=== PATIENT | female | born 1955 | race Caucasian/White ===

== ENCOUNTER 2019-03-15 10:37 | Emergency (ER) | payer OTHER ==
[2019-03-15 10:44] VITALS: BP 116/78; PULSE 75; TEMP 98.2; BMI 29.7
--- NOTE | 2019-03-15 11:55 | PDOC ---
History of Present Illness - General Chief Complaint: Cold Symptoms Stated Complaint: COUGHING Time Seen by Provider: 03/15/19 10:50 - History of Present Illness Initial Comments: 03/15/19 11:51 63-year-old female with a past medical history of hypertension diabetes presents for evaluation of cough without systemic symptoms x1 week Past History - Past Medical History Allergies/Adverse Reactions: Allergies Allergy/AdvReac Type Severity Reaction Status Date / Time No Known Allergies Allergy Verified 03/15/19 10:40 Home Medications: Ambulatory Orders Albuterol Sulfate Inhaler - [Ventolin HFA Inhaler -] 1 - 2 inh PO Q4H #1 inhaler 08/24/17 Enalapril Maleate [Vasotec -] 10 mg PO DAILY 08/24/17 metFORMIN HCL [Metformin HCl] 500 mg PO ASDIR 08/24/17 Guaifenesin Dm [Mucinex Dm -] 1 tab PO BID #60 tab.er.12h 03/15/19 metFORMIN HCL [Metformin HCl] 500 mg PO BID 03/15/19 Asthma: Yes COPD: No Diabetes: Yes HTN: Yes Hypercholesterolemia: Yes - Surgical History Cholecystectomy: Yes - Immunization History Immunization Up to Date: Yes - Psycho Social/Smoking Cessation Hx Smoking History: Never smoked Have you smoked in the past 12 months: Yes Hx Alcohol Use: Yes Drug/Substance Use Hx: No Substance Use Type: None *Physical Exam - Vital Signs Last Vital Signs Temp Pulse Resp BP Pulse Ox 98.2 F 75 18 116/78 98 03/15/19 10:40 03/15/19 10:40 03/15/19 10:40 03/15/19 10:40 03/15/19 10:40 ED Treatment Course - RADIOLOGY Radiology Studies Ordered: Category Date Time Status CHEST PA & LAT [RAD] Stat Radiology 03/15/19 11:01 Taken Medical Decision Making - Medical Decision Making 03/15/19 11:54 Chest x-ray shows no discrete infiltrate increased interstitial markings consistent with a viral pattern most likely a viral upper respiratory infection follow-up with primary care physician Discharge - Discharge Information Problems reviewed: Yes Clinical Impression/Diagnosis: Viral URI with cough Condition: Stable Disposition: HOME - Admission No - Follow up/Referral Referrals: Mariella Turk MD [Primary Care Provider] - - Patient Discharge Instructions Patient Printed Discharge Instructions: DI for Viral Upper Respiratory Infection -- Adult Additional Instructions: May take Mucinex as directed for cough. Return to the emergency room for the worsening symptoms. Follow-up with your primary care physician in 1 to 2 days for further evaluation and treatment options. - Post Discharge Activity
--- NOTE | 2019-03-16 10:55 | EKG ---
Test Reason : Blood Pressure : / mmHG Vent. Rate : 061 BPM Atrial Rate : 061 BPM P-R Int : 168 ms QRS Dur : 076 ms QT Int : 404 ms P-R-T Axes : 053 000 026 degrees QTc Int : 406 ms NORMAL SINUS RHYTHM NORMAL ECG NO PREVIOUS ECGS AVAILABLE Confirmed by ANAT VILLEDA MD ([id number]) on 03/16/2019 10:54:37 AM Referred By: Confirmed By:ANAT VILLEDA MD
== END 2019-03-15 12:08 | disposition home or self-care (01) ==
LOC: JERFT 10:37
DX: J06.9 Acute upper respiratory infection, unspecified (principal); B97.89 Other viral agents as the cause of diseases classified elsewhere; I10 Essential (primary) hypertension; E78.00 Pure hypercholesterolemia, unspecified; E11.9 Type 2 diabetes mellitus without complications; Z79.84 Long term (current) use of oral hypoglycemic drugs
CPT/HCPCS: 71046-TC-FY; 87804; 93005; 93010; 99281-25

== ENCOUNTER 2019-04-26 00:23 | Observation (INO) | payer OTHER ==
--- NOTE | 2019-04-26 00:48 | PDOC ---
History of Present Illness - General Chief Complaint: Allergic Reaction Stated Complaint: ALLERGIC REACTION Time Seen by Provider: 04/26/19 00:48 History Source: Patient Exam Limitations: No Limitations - History of Present Illness Initial Comments: 63 year old female with PMH HTN, DM presented to ED for facial swelling beginning at 2300 yesterday. Pt reported she took her ACEI, Metformin, and Ibuprofen 400 mg around 2200, then awoke around 2300 "not feeling well" and noticed her eyes were swollen. She reported she has had a similar reaction to taking ibuprofen before, noticed some minimal eye swelling, but figured "it was because her pressure was high". She reported feeling itching all over with a rash to her back. She admitted to nausea. She denied vomiting, shortness of breath, lightheadedness, syncope, chest pain. ROS General: admitted to generalized weakness. denied fever, chills. HEENT: admitted to facial swelling. denied sore throat, rhinorrhea, ear pain. Cardiovascular: denied chest pain, palpitations, syncope, diaphoresis. Respiratory: denied shortness of breath, cough, sputum production, hemoptysis. Gastrointestinal: admitted to nausea. denied abdominal pain, vomiting, diarrhea , constipation, blood in stool. Genitourinary: denied dysuria, increased urinary frequency, hematuria, urinary incontinence, flank pain. Back: denied back pain. Musculoskeletal: denied joint pain, muscle pain, joint swelling. Neurological: denied headache, dizziness, numbness, tingling, weakness. Integumentary: admitted to rash, itching. denied laceration, abrasion. Hematologic/Lymphatic: denied bruising or bleeding. PE Constitutional: Well-nourished, Well-developed, appearing stated age. HEENT: head is normocephalic, atraumatic. EOMI. PERRLA. no posterior pharyngeal erythema. no tonsillar swelling or exudates bilaterally. uvula midline, with uvular swelling. no peritonsillar swelling, tenderness or abscess. no jaw tenderness or misalignment. Neck: supple. Full ROM. Cardiovascular: regular heart rhythm. no murmurs. no pericardial friction rub. Respiratory: clear to auscultation bilaterally. no crackles, rhonchi or wheezing. no stridor. Gastrointestinal: soft, nontender. normal bowel sounds. no rebound, guarding, masses. Back: hives with scratch-like abrasions. Extremities: peripheral pulses intact. no lower extremity edema. Neurological: CN 2-12 grossly intact. moves all four extremities. Psych: awake, alert, oriented x3. follows commands. answers questions appropriately. Past History - Past Medical History Allergies/Adverse Reactions: Allergies Allergy/AdvReac Type Severity Reaction Status Date / Time No Known Allergies Allergy Verified 03/15/19 10:40 Home Medications: Ambulatory Orders Enalapril Maleate [Vasotec -] 10 mg PO DAILY 08/24/17 metFORMIN HCL [Metformin HCl] 500 mg PO DAILY 03/15/19 Epinephrine [Epipen 2-Gama] 0.3 mg IJ ASDIR #1 kit 04/26/19 - Immunization History Immunization Up to Date: Yes - Psycho Social/Smoking Cessation Hx Smoking History: Never smoked Have you smoked in the past 12 months: No Hx Alcohol Use: No Drug/Substance Use Hx: No Substance Use Type: None *Physical Exam - Vital Signs Last Vital Signs Temp Pulse Resp BP Pulse Ox 97.2 F L 70 20 158/79 98 04/26/19 00:36 04/26/19 00:36 04/26/19 00:36 04/26/19 00:36 04/26/19 00:36 ED Treatment Course - LABORATORY CBC & Chemistry Diagram: 04/26/19 01:20 04/26/19 03:00 Medical Decision Making - Medical Decision Making 63 year old female with above PMH presented to ED for rash, itching, facial swelling after taking ACEI, Metformin, and Ibuprofen 400 mg PO. She reported similar but less intense reaction prior with ibuprofen. Initial Vital Signs Temp Pulse Resp BP Pulse Ox 97.2 F L 70 20 158/79 98 04/26/19 00:36 04/26/19 00:36 04/26/19 00:36 04/26/19 00:36 04/26/19 00:36 Afebrile. No tachycardia. No tachypnea. Hypertensive. No hypoxia on room air. Labs ordered: CBC, CMP Imaging ordered: none Medications ordered: solumedrol IV 125 mg, benadryl 50 mg PO once, zofran 4 mg IV once, pepcid IV once, normal saline bolus 1000 cc once 04/26/19 02:13 CBC WBC 5.6 K/mm3 (4.0-10.0) 04/26/19 01:20 RBC 4.51 M/mm3 (3.60-5.2) 04/26/19 01:20 Hgb 14.0 GM/dL (10.7-15.3) 04/26/19 01:20 Hct 42.4 % (32.4-45.2) 04/26/19 01:20 MCV 94.0 fl (80-96) 04/26/19 01:20 MCH 31.0 pg (25.7-33.7) 04/26/19 01:20 MCHC 33.0 g/dl (32.0-36.0) 04/26/19 01:20 RDW 14.1 % (11.6-15.6) 04/26/19 01:20 Plt Count 184 K/MM3 (134-434) 04/26/19 01:20 MPV 10.2 fl (7.5-11.1) 04/26/19 01:20 Absolute Neuts (auto) 2.0 K/mm3 (1.5-8.0) 04/26/19 01:20 Neutrophils % 35.7 % (42.8-82.8) L 04/26/19 01:20 Lymphocytes % 50.7 % (8-40) H 04/26/19 01:20 Monocytes % 7.6 % (3.8-10.2) 04/26/19 01:20 Eosinophils % 5.2 % (0-4.5) H 04/26/19 01:20 Basophils % 0.8 % (0-2.0) 04/26/19 01:20 Nucleated RBC % 0 % (0-0) 04/26/19 01:20 04/26/19 03:18 Lab lost jungle top. Will re-draw. 04/26/19 06:19 CMP Sodium 142 mmol/L (136-145) 04/26/19 03:00 Potassium 4.2 mmol/L (3.5-5.1) 04/26/19 03:00 Chloride 112 mmol/L (98-107) H 04/26/19 03:00 Carbon Dioxide 22 mmol/L (21-32) 04/26/19 03:00 Anion Gap 8 MMOL/L (8-16) 04/26/19 03:00 BUN 13.8 mg/dL (7-18) 04/26/19 03:00 Creatinine 0.8 mg/dL (0.55-1.3) 04/26/19 03:00 Est GFR (CKD-EPI)AfAm 92.22 04/26/19 03:00 Est GFR (CKD-EPI)NonAf 79.57 04/26/19 03:00 Random Glucose 121 mg/dL (74-106) H 04/26/19 03:00 Calcium 8.3 mg/dL (8.5-10.1) L 04/26/19 03:00 Total Bilirubin 0.3 mg/dL (0.2-1) 04/26/19 03:00 AST 18 U/L (15-37) 04/26/19 03:00 ALT 23 U/L (13-61) 04/26/19 03:00 Alkaline Phosphatase 61 U/L (45-117) 04/26/19 03:00 Total Protein 6.7 g/dl (6.4-8.2) 04/26/19 03:00 Albumin 3.5 g/dl (3.4-5.0) 04/26/19 03:00 Pt admitted for Obs of uvular swelling. Signout given to Dr. Richardson, resident. Discharge - Discharge Information Problems reviewed: Yes Clinical Impression/Diagnosis: Uvular swelling Allergic reaction Qualifiers: Encounter type: initial encounter Qualified Code(s): T78.40XA - Allergy, unspecified, initial encounter Condition: Guarded - Admission Yes - Additional Discharge Information - Follow up/Referral - Patient Discharge Instructions - Post Discharge Activity
[2019-04-26] MEDS ORDERED: diphenhydrAMINE HCL 50 MG CAPSULE PO ONE (00:55)
[2019-04-26] MEDS ORDERED: SODIUM CHLORIDE 1,000 ML IV STA (00:55)
[2019-04-26] MEDS ORDERED: methylPREDNISolone NA SUCC 125 MG/2 ML VIAL IVPUSH ONE (00:55)
[2019-04-26] MEDS ORDERED: FAMOTIDINE 20 MG/50 ML IVPB 20 MG/50 ML MG IVPB ONE ×3 (00:55→11:17)
[2019-04-26] MEDS ORDERED: ONDANSETRON 4 MG/2 ML VIAL IVPUSH ONE (00:55)
[2019-04-26] MEDS ORDERED: diphenhydrAMINE HCL 25 MG CAPSULE (FP) PO ONE (01:16)
[2019-04-26] MEDS ORDERED: methylPREDNISolone NA SUCC 125 MG/2 ML VIAL ONE (01:17)
[2019-04-26] MEDS ORDERED: ONDANSETRON 4 MG/2 ML VIAL ONE (01:18)
[2019-04-26 01:52] LABS: BASO % 0.8 % (0-2.0); EOS % 5.2 % (0-4.5); HEMATOCRIT 42.4 % (32.4-45.2); LYMPH % 50.7 % (8-40); MEAN PLT VOLUME 10.2 fl (7.5-11.1); MONO % 7.6 % (3.8-10.2); NEUT % 35.7 % (42.8-82.8); PLATELET COUNT 184 K/MM3 (134-434); RBC 4.51 M/mm3 (3.60-5.2); RDW 14.1 % (11.6-15.6); WHITE BLOOD COUNT 5.6 K/mm3 (4.0-10.0)
--- NOTE | 2019-04-26 02:35 | PDOC ---
Attending Attestation - Resident Resident Name: Eliz,Cyndee - ED Attending Attestation I have performed the following: I have examined & evaluated the patient, The case was reviewed & discussed with the resident, I agree w/resident's findings & plan - HPI HPI: 04/26/19 02:32 Pt comes with an allergic rxn to motrin (most likely) she has something like this in the recent past. Today she took 2 motrin and she developed swelling of her face, hoves and uvula swelling and a feeling like she cannot swallow. - Physicial Exam PE: 04/26/19 02:33 Agree with resident exam. Pt is breathing easily; she has swelling of her uvula and mucus in the back of her throat. No voice changes. Pt has normal heart and lungs. Abd soft NT ND Pt has no flank pain She has no leg swelling She has swollen eyelids She has small hives on her trunk - Medical Decision Making 04/26/19 02:37 Pt will be admitted for observation, as she is having difficulty swallowing. 04/26/19 02:55 CBC is normal; lab miscplaced the CHEM, and pt is refusing another blood draw at this time. Pt treated with benadryl, prednisone and zofran and she is sleeping comfortably at this time. 04/26/19 04:06 Chem is still pending-- unclear if lab found the sample 04/26/19 04:06 04/26/19 05:[address] of airway demonstrates patent airway
[2019-04-26 04:07] LABS: ALBUMIN 3.5 g/dl (3.4-5.0); BILIRUBIN,TOTAL 0.3 mg/dL (0.2-1); BLOOD UREA NITROGEN 13.8 mg/dL (7-18); CALCIUM 8.3 mg/dL (8.5-10.1); CREATININE 0.8 mg/dL (0.55-1.3); POTASSIUM 4.2 mmol/L (3.5-5.1); TOT PROT 6.7 g/dl (6.4-8.2)
[2019-04-26 11:30] VITALS: BMI 28.8
--- NOTE | 2019-04-26 11:39 | HP ---
CHIEF COMPLAINT: Angioedema PCP: HISTORY OF PRESENT ILLNESS: 63 y/o F with PMHx HTN, HLD, DM presents for periorbital and uvular swelling. Patient has been on ACEi and Metformin for many years. She woke in her usual state of health and took her metformin and ACEi, and was able to work a full day. Yesterday evening, patient started to feel a headache for which she took ibuprofen; She has felt similar headaches in the past which were related to her high blood pressure. She went to bed with minimal improvement of her headache however around 2300, she woke not feeling well and noticed swelling of her eyelids. This is the first time she experienced. She additionally felt some throat swelling prompting her to visit the ED. Since then she additionally feels nausea. No recent medication changes. Denies any associated fevers, chills, chest pain, SOB, vomiting, diarrhea, constipation, lightheadedness, dysuria. 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 Ambulation: without assistance Residence: Alone Allergies No Known Allergies Allergy (Verified 03/15/19 10:40) HOME MEDICATIONS: Home Medications Medication Instructions Recorded Enalapril Maleate [Vasotec -] 10 mg PO DAILY 08/24/17 metFORMIN HCL [Metformin HCl] 500 mg PO DAILY 03/15/19 Epinephrine [Epipen 2-Gama] 0.3 mg IJ ASDIR #1 kit 04/26/19 REVIEW OF SYSTEMS As per HPI PHYSICAL EXAMINATION Vital Signs - 24 hr 04/26/19 04/26/19 04/26/19 00:36 07:30 10:33 Temperature 97.2 F L 97.2 F L Pulse Rate 70 75 Pulse Rate [ 78 Radial] Respiratory 20 18 18 Rate Blood Pressure 158/79 122/67 Blood Pressure 139/75 [Right Arm] O2 Sat by Pulse 98 98 Oximetry (%) GENERAL: A&Ox3, NAD HEAD: NCAR EYES: PERRL, EOMI, Periorbital swelling EARS, NOSE, THROAT: Mild Uvular swelling, No erythema, Moist mucous membranes. NECK: FROM, No JVD LUNGS: CTAB, No wheezes, No crackles. HEART: Regular rate and rhythm, normal S1 and S2 without murmur ABDOMEN: Soft, nontender, not distended, + bowel sounds, no guarding MUSCULOSKELETAL: No CVA tenderness. EXTREMITIES: No peripheral edema. NEUROLOGICAL: Cranial nerves II-XII intact. Normal speech. SKIN: Warm, dry, No Rash Laboratory Results - last 24 hr 04/26/19 04/26/19 01:20 03:00 WBC 5.6 RBC 4.51 Hgb 14.0 Hct 42.4 MCV 94.0 MCH 31.0 MCHC 33.0 RDW 14.1 Plt Count 184 MPV 10.2 Absolute Neuts (auto) 2.0 Neutrophils % 35.7 L Lymphocytes % 50.7 H Monocytes % 7.6 Eosinophils % 5.2 H Basophils % 0.8 Nucleated RBC % 0 Sodium 142 Potassium 4.2 Chloride 112 H Carbon Dioxide 22 Anion Gap 8 BUN 13.8 Creatinine 0.8 Est GFR (CKD-EPI)AfAm 92.22 Est GFR (CKD-EPI)NonAf 79.57 Random Glucose 121 H Calcium 8.3 L Total Bilirubin 0.3 AST 18 ALT 23 Alkaline Phosphatase 61 Total Protein 6.7 Albumin 3.5 Active Medications Diphenhydramine HCl (Benadryl -) 25 mg PO BID BERNARDO Heparin Sodium (Porcine) (Heparin -) 5,000 unit SQ TID BERNARDO Famotidine/Sodium Chloride (Pepcid 20 Mg Premixed Ivpb -) 20 mg in 50 mls @ 100 mls/hr IVPB DAILY ONE Stop: 04/26/19 11:46 Metformin HCl (Glucophage -) 500 mg PO 0730 BERNARDO Prednisone (Deltasone -) 40 mg PO DAILY [facility] ASSESSMENT/PLAN: 63 y/o F with PMHx HTN, DM presents for periorbital and uvular swelling. #Periorbital and uvular swelling -Unclear etiology; Concerning for Angioedema in the setting of chronic ACEi use VS Adverse/Allergic Rxn to Metformin or Ibuprofen use -Currently saturating well on room air, able to maintain airway and mentation at this time without stridor -CT Soft tissue neck w/o con: No evidence of acute pathology. -Continue Diphenhydramine, Prednisone, Famotidine for a total of 5 days #HTN -Hold ACEi for now -Remains normotensive for now; Will consider starting Norvasc if becomes hypertensive #DM -Continue Metformin #FEN -No standing fluids -Replete Lytes PRN -Soft diet #PPx -DVT: Heparin TID -GI: Famotidine Dispo: Tele-obs; Anticipate discharge tmrw if airway remains patent Visit type - Emergency Visit Emergency Visit: Yes ED Registration Date: 04/26/19 Care time: The patient presented to the Emergency Department on the above date and was hospitalized for further evaluation of their emergent condition. - New Patient This patient is new to me today: Yes Date on this admission: 04/27/19 - Critical Care Critical Care patient: No ATTENDING PHYSICIAN STATEMENT I saw and evaluated the patient. I reviewed the resident's note and discussed the case with the resident. I agree with the resident's findings and plan as documented. SUBJECTIVE: OBJECTIVE: ASSESSMENT AND PLAN:
[2019-04-26] MEDS: diphenhydrAMINE HCL 25 MG CAPSULE (FP) PO SCH ×2 (11:41→21:43)
[2019-04-26] MEDS: predniSONE 20 MG TABLET (UD) PO SCH (11:41)
[2019-04-26] MEDS: metFORMIN HCL 500 MG TABLET (FP) PO SCH (11:42)
--- NOTE | 2019-04-26 13:59 | EKG ---
Test Reason : Blood Pressure : / mmHG Vent. Rate : 068 BPM Atrial Rate : 068 BPM P-R Int : 154 ms QRS Dur : 074 ms QT Int : 418 ms P-R-T Axes : 043 -06 023 degrees QTc Int : 444 ms NORMAL SINUS RHYTHM NORMAL ECG WHEN COMPARED WITH ECG OF 15-MAR-2019 10:45, NO SIGNIFICANT CHANGE WAS FOUND Confirmed by MALENA TAI MD ([id number]) on 04/26/2019 1:58:48 PM Referred By: Confirmed By:MALENA TAI MD
--- NOTE | 2019-04-26 14:08 | PN ---
Teaching Attending Note Name of Resident: Riri Campos ATTENDING PHYSICIAN STATEMENT I saw and evaluated the patient. I reviewed the resident's note and discussed the case with the resident. I agree with the resident's findings and plan as documented. SUBJECTIVE: Feeling much improved. Edema improved, not resolved. No further rash , itch, difficulty swallowing/breathing. OBJECTIVE: Afebrile, Hemodynamically Stable. Comfortable, SpO2 98% on RA. Last Vital Signs Temp Pulse Resp BP Pulse Ox 98.2 F 81 18 138/81 98 04/26/19 11:20 04/26/19 11:31 04/26/19 11:43 04/26/19 11:20 04/26/19 11:43 HEENT - Celeste-orbital/facial swelling. HARINDER, EOMI. Mild uvula/pharngeal swellling - no erythema/exudate. Airways patent, No stridor. Heart - S1, S2, RRR Lungs - clear to auscultations - no wheeze. No stridor. Abdomen - Soft, non-tender. Bowel Sounds normal. Extremities -no edema, no calf tenderness Neuro - AAO x 3. Tone/Power normal all extremities. Laboratory Results - last 24 hr 04/26/19 04/26/19 01:20 03:00 WBC 5.6 RBC 4.51 Hgb 14.0 Hct 42.4 MCV 94.0 MCH 31.0 MCHC 33.0 RDW 14.1 Plt Count 184 MPV 10.2 Absolute Neuts (auto) 2.0 Neutrophils % 35.7 L Lymphocytes % 50.7 H Monocytes % 7.6 Eosinophils % 5.2 H Basophils % 0.8 Nucleated RBC % 0 Sodium 142 Potassium 4.2 Chloride 112 H Carbon Dioxide 22 Anion Gap 8 BUN 13.8 Creatinine 0.8 Est GFR (CKD-EPI)AfAm 92.22 Est GFR (CKD-EPI)NonAf 79.57 Random Glucose 121 H Calcium 8.3 L Total Bilirubin 0.3 AST 18 ALT 23 Alkaline Phosphatase 61 Total Protein 6.7 Albumin 3.5 Current Medications Generic Name Dose Route Start Last Admin Trade Name Freq PRN Reason Stop Dose Admin Diphenhydramine HCl 25 mg 04/26/19 11:30 04/26/19 11:41 Benadryl - PO 25 mg BID BERNARDO Administration Heparin Sodium (Porcine) 5,000 unit 04/26/19 14:00 Heparin - SQ TID BERNARDO Metformin HCl 500 mg 04/26/19 11:30 04/26/19 11:42 Glucophage - PO 500 mg 0730 BERNARDO Administration Prednisone 40 mg 04/26/19 11:30 04/26/19 11:41 Deltasone - PO 40 mg DAILY BERNARDO Administration Home Medications Medication Instructions Recorded Enalapril Maleate [Vasotec -] 10 mg PO DAILY 08/24/17 metFORMIN HCL [Metformin HCl] 500 mg PO DAILY 03/15/19 ASSESSMENT AND PLAN: 63 year old female with HTN, DM 2, presents with difficulty swallowing, rash, itching, found to have periorbital and uvular swelling. 1. Angioedema, possible anaphylactic reaction to ?AYSHA-I Also took Metformin and Ibuprofen yesterday. No history of reaction to any of these on prior exposure. Will hold AYSHA-I and re-trial of Metformin. No clear environmental or food exposure. Currently comfortable, SpO2 98% RA, no wheeze or stridor. Continue steroid, anti-histamine, H2 maryse for a total of 5 days. 2. HTN - Hold AYSHA-I 3. DM 2 - Resume Metformin DVT Px - Heparin SQ GI Px - H2 maryse.
[2019-04-26] MEDS: HEPARIN NA (PORCINE) 5,000 UNITS/ML 1ML VIAL SQ SCH ×2 (14:26→21:43)
[2019-04-27] MEDS: HEPARIN NA (PORCINE) 5,000 UNITS/ML 1ML VIAL SQ SCH (05:39)
[2019-04-27] MEDS: metFORMIN HCL 500 MG TABLET (FP) PO SCH ×2 (06:21→07:38)
[2019-04-27 07:05] LABS: BASO % 0.3 % (0-2.0); EOS % 0.1 % (0-4.5); HEMATOCRIT 38.7 % (32.4-45.2); HEMOGLOBIN 12.9 GM/dL (10.7-15.3); LYMPH % 25.6 % (8-40); MCHC 33.3 g/dl (32.0-36.0); MEAN CELL VOLUME 93.1 fl (80-96); MONO % 8.1 % (3.8-10.2); NEUT % 65.9 % (42.8-82.8); PLATELET COUNT 201 K/MM3 (134-434); RBC 4.15 M/mm3 (3.60-5.2); RDW 13.9 % (11.6-15.6); WHITE BLOOD COUNT 9.6 K/mm3 (4.0-10.0)
[2019-04-27 07:16] LABS: ALBUMIN 3.3 g/dl (3.4-5.0); BILIRUBIN,TOTAL 0.3 mg/dL (0.2-1); BLOOD UREA NITROGEN 14.9 mg/dL (7-18); CALCIUM 8.7 mg/dL (8.5-10.1); CREATININE 0.8 mg/dL (0.55-1.3); MAGNESIUM 2.1 mg/dL (1.8-2.4); POTASSIUM 4.3 mmol/L (3.5-5.1); TOT PROT 6.6 g/dl (6.4-8.2)
[2019-04-27 09:26] VITALS: BP 140/76; PULSE 70; TEMP 97.9
[2019-04-27] MEDS: predniSONE 20 MG TABLET (UD) PO SCH (09:26)
[2019-04-27] MEDS: diphenhydrAMINE HCL 25 MG CAPSULE (FP) PO SCH ×2 (09:26→09:28)
--- NOTE | 2019-04-27 12:22 | DS ---
Physical Exam: SUBJECTIVE: Patient seen and examined, feels better, no dyspnea or dysphagia, tolerating diet well, swelling markedly improved. OBJECTIVE: Vital Signs Period Temp Pulse Resp BP Sys/Smalls Pulse Ox Last 24 Hr 97.8 F-98.2 F 67-95 18-18 127-147/63-79 98-98 PHYSICAL EXAM GENERAL: sitting in bed, no acute distress HEENT: minimal per-orbital/Facial swelling (improved per patient), no uvular or pharyngeal swelling noted, no stridor Neck: soft, supple Chest: CTAb, no rales or wheezing or stridor Abdomen:soft, NT Extremities: no edema LABS Laboratory Results - last 24 hr 04/27/19 04/27/19 04/27/19 05:35 05:35 05:51 WBC 9.6 RBC 4.15 Hgb 12.9 Hct 38.7 MCV 93.1 MCH 31.0 MCHC 33.3 RDW 13.9 Plt Count 201 MPV 10.0 Absolute Neuts (auto) 6.3 Neutrophils % 65.9 D Lymphocytes % 25.6 D Monocytes % 8.1 Eosinophils % 0.1 D Basophils % 0.3 Nucleated RBC % 0 Sodium 141 Potassium 4.3 Chloride 111 H Carbon Dioxide 23 Anion Gap 8 BUN 14.9 Creatinine 0.8 Est GFR (CKD-EPI)AfAm 92.22 Est GFR (CKD-EPI)NonAf 79.57 POC Glucometer 124 Random Glucose 121 H Calcium 8.7 Phosphorus 3.0 Magnesium 2.1 Total Bilirubin 0.3 AST 14 L ALT 19 Alkaline Phosphatase 60 Total Protein 6.6 Albumin 3.3 L Soft Tissue Neck CT prelim neg for swelling or acute process HOSPITAL COURSE: Date of Admission:04/26/19 Date of Discharge: 04/27/19 Minutes to complete discharge: 42 Discharge Summary Problems reviewed: Yes Reason For Visit: UVULAR EDEMA, ACUTE ALLERGIC REACTION Current Active Problems Allergic reaction (Acute) Uvular swelling (Acute) Acute angioedema HTN NIDDM Hospital Course: 63 y/o F with PMHx HTN, HLD, DM presents for periorbital and uvular swelling. Patient had been on ACEi and Metformin for many years. She woke in her usual state of health and took her metformin and ACEi, and was able to work a full day. Evening prior to admission, she took advil for headache. She woke up with face and eyelid swelling, came to ED. She was found with fortunato-orbital/facial and mild uvular/Pharyngeal swelling, had CT neck, prelim result neg for concerns. She was placed on prednisone, benadryl and famotidine with improvement in her symptoms. Her metformin was resumed with no concerns. Patient is strictly advised to stop her Enalapril and NSAIDs and add them to her ALLERGY LIST till further evaluated by allergy and immunology specialist. Epi-pen education was provided. Her BP has been stable off medication and she is advised home monitoring and follow up with PCP. She will be discharged on short course of prednisone, famotidine, benadryl and epi-pen prescriptions in stable condition with outpatient follow up with allergy and immunology specialist and PCP. Condition: Stable - Instructions Diet, Activity, Other Instructions: Do not take ibuprofen/motrin/advil/aleve again, as the next reaction may be much larger. STOP YOUR ENALAPRIL Please note to add Enalapril and NSAIDs (ibuprofen, advil, motrin, ketorolac etc ) in your list of allergies till you see an allergy and immunology specialist and advised further MEDICATIONS: START: Prednisone taper as follows: 30 mg for 2 days (04/28 and 04/29) 20 mg for 2 days (04/30 and 05/01 10 mg for 2 days (05/02 and 05/03), then off benadryl 25 mg daily till symptoms fully resolve Famotidine 20 mg twice daily till symptoms resolve Epi-pen injection as needed as directed. STOP: ENALAPRIL Continue: Metformin INSTRUCTIONS: 1. Please add Enalapril and NSAIDs to your allergy list till seen by allergy and immunology specialist. 2. I have sent a prescription for an epipen to your pharmacy, you must keep a pen with you AT ALL TIMES as you do not know when the next reaction could be. If you feel you have airway swelling/your throat is closing up/you cannot breath you must inject the pen into your thigh IMMEDIATELY, and then proceed to your nearest Emergency Department, as the medicine will wear off quickly. Be careful you do not have the pen backwards and do not accidentally stab yourself in the finger, as the medication is not safe for a finger, and can cause of the finger. 3. Your BP medication has been stopped, your BP readings have been stable off the medication. Advise home BP daily till seen by your doctor and maintain diary. Notify your doctor if persistently >135/85. 4. No driving on benadyl as can cause drowsiness. FOLLOW UP: Primary care physician in 3-5 days resource recovery specialist in 1-2 weeks Return to the Emergency Department for increasing swelling, feeling as though your airway is closing, shortness of breath, vomiting, lightheadedness, chest pain, fever, elevated BP, headache or any other new, worsening or concerning symptoms. Referrals: Mariella Turk MD [Primary Care Provider] - Disposition: HOME - Home Medications Comprehensive Discharge Medication List: Ambulatory Orders metFORMIN HCL [Metformin HCl] 500 mg PO DAILY 03/15/19 Diphenhydramine HCl [Benadryl -] 25 mg PO DAILY #5 capsule 04/27/19 Epinephrine [Epipen] 0.3 mg IJ ASDIR #5 auto.injct 04/27/19 Famotidine 20 mg PO BID #10 tablet 04/27/19 Prednisone See Taper PO ASDIR #12 tablet 04/27/19 This patient is new to me today: Yes Date on this admission: 04/27/19 Emergency Visit: Yes ED Registration Date: 04/26/19 Care time: The patient presented to the Emergency Department on the above date and was hospitalized for further evaluation of their emergent condition. Critical Care patient: No - Discharge Referral Referred to [facility] No
== END 2019-04-27 13:29 | disposition home or self-care (01) ==
LOC: JER 00:23 → JERBED 06:00 → INTOOBSV 06:00 → J4W 10:55
PROVIDERS: ATTEND Hospitalist
PROC: 3E033GC Introduction of Other Therapeutic Substance into Peripheral Vein, Percutaneous Approach (ICD-10-PCS; principal; 2019-04-26)
PROC: 3E0337Z Introduction of Electrolytic and Water Balance Substance into Peripheral Vein, Percutaneous Approach (ICD-10-PCS; 2019-04-26)
PROC: 3E0333Z Introduction of Anti-inflammatory into Peripheral Vein, Percutaneous Approach (ICD-10-PCS; 2019-04-26)
PROC: 3E013GC Introduction of Other Therapeutic Substance into Subcutaneous Tissue, Percutaneous Approach (ICD-10-PCS; 2019-04-26)
DX: T78.40XA Allergy, unspecified, initial encounter (principal); T78.3XXA Angioneurotic edema, initial encounter; R22.0 Localized swelling, mass and lump, head; X58.XXXA Exposure to other specified factors, initial encounter; H05.229 Edema of unspecified orbit; I10 Essential (primary) hypertension; E11.9 Type 2 diabetes mellitus without complications; E78.5 Hyperlipidemia, unspecified; Z79.84 Long term (current) use of oral hypoglycemic drugs
CPT/HCPCS: 36415; 70490-TC; 80053; 82962; 83735; 84100; 85025; 93005; 93010; 96365; 96367; 96372; 96375; 99284-25; G0378; J1644; J7030

== ENCOUNTER 2020-02-03 04:54 | Day surgery (SDC) | payer OTHER ==
--- OUTSIDE RECORDS SUMMARY | 2020-01-26 11:11 | XMS ---
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 ., . . SE Unavailable Unavailable Unavailable HAIR EXPECTATIONS Unavailable [address] [place] [address] MITALI DICKENS DAUGHTER [address] [place] [address] Re-disclosure Warning The records that you are about to access may contain information from federally- assisted alcohol or drug abuse programs. If such information is present, then the following federally mandated warning applies: This information has been disclosed to you from records protected by federal confidentiality rules (42 CFR part 2). The federal rules prohibit you from making any further disclosure of this information unless further disclosure is expressly permitted by the written consent of the person to whom it pertains or as otherwise permitted by 42 CFR part 2. A general authorization for the release of medical or other information is NOT sufficient for this purpose. The Federal rules restrict any use of the information to criminally investigate or prosecute any alcohol or drug abuse patient.The records that you are about to access may contain highly sensitive health information, the redisclosure of which is protected by Article 27-F of the [facility] Public Health law. If you continue you may haveaccess to information: Regarding HIV / AIDS; Provided by facilities licensed or operated by the [facility] Office of Mental Health; or Provided by the [facility] Office for People With Developmental Disabilities. If such information is present, then the following [facility] mandated warning applies: This information has been disclosed to you from confidential records which are protected by state law. State law prohibits you from making any further disclosure of this information without the specific written consent of the person to whom it pertains, or as otherwise permitted by law. Any unauthorized further disclosure in violation of state law may result in a fine or long-term sentence or both. A general authorization for the release of medical or other information is NOT sufficient authorization for further disclosure. Insurance Providers Payer name Policy type Policy ID Covered Covered libertarian's Policy P cris / Coverage libertarian ID relationship to Paul Inf ormation type paul [facility] HEALTH [id number] SP [id number] 1000 CARE [facility] MEDICAID [id number] SP [id number] [facility] [id number] SP [id number]
[2020-01-27 15:20] VITALS: BMI 30.1
--- OUTSIDE RECORDS SUMMARY | 2020-02-03 04:58 | XMS ---
:1955 Author Organization [facility] Support Name Relationship Address Phone RIGHT AT HOME Unavailable [address] [facility] [phone] [place] [address] TITO SON [address] [place] [address] DIRECTOR QUALITY ASSURANCE Unavailable SP . ., . . SE Unavailable Unavailable Unavailable HAIR EXPECTATIONS Unavailable [address] [place] [address] MANINDER DAUGHTER [address] [place] [address] Re-disclosure Warning The records that you are [...] is protected by Article 27-F of the [facility] Public Health law. If you continue you may haveaccess to information: Regarding HIV / AIDS; Provided by facilities licensed or operated by the [facility] Office of Mental Health; or Provided by the [facility] Office for People With Developmental Disabilities. If such information is present, then the following [facility] mandated warning applies: This information has been [...] law may result in a fine or long term sentence or both. A general authorization for the release of medical or other information is NOT sufficient authorization for further disclosure. Insurance Providers Payer name Policy type Policy ID Covered Covered alliance party's Policy P cris / Coverage alliance party ID relationship to Paul Inf ormation type paul [facility] MEDICAID [id number] SP [id number] HMO [facility] [id number] SP [id number] 1000 CARE [place] [id number] SP [id number] 200 Results ID Date Data Source [id number] 01/29/2020 02:25:00 PM EDT [facility] Name Value Range Interpretation Description Data Sup porting Code Source(s) Document(s ) SARS [facility] coronavirus 2 RNA This lab was ordered by [facility] and reported by [facility]. Procedure
[2020-02-03] MEDS ORDERED: ALBUTEROL SO4 0.083% IH SOL 2.5 MG/3 ML VIAL.NEB. NEB ONE (09:44)
[2020-02-03 09:51] VITALS: TEMP 97.8
--- NOTE | 2020-02-03 10:35 | PN ---
Progress Note (short form) - Note Progress Note: Coughing towards end of procedure and in recovery. Maintained O2 saturations 95- 100% during procedure. Minimal secretions noted when suctioned. Maintained 02 saturations 97-100% in recovery. maintained O2 saturations off of NC 02 in recovery. Lungs were CTA B/L. Given albuterol nebulizer treatment. Stated feeling better.
[2020-02-03 11:14] VITALS: BP 122/55; PULSE 58
--- NOTE | 2020-02-04 17:36 | PATH ---
Surgical Pathology Report Patient Name: FAZAL DICKENS [facility]. Rec. #: [id number] /Age/Gender: 1955 (Age: 64) / F Account: [id number] Location: U-ENDOSCOPY Taken: 02/03/2020 Received: 02/03/2020 Reported: 02/04/2020 Physicians: Dean Bates D.O. Specimen(s) Received A: RECTOSIGMOID POLYP COLD SNARE B: RIGHT COLON C: TRANSVERSE COLON D: DESCENDING COLON Clinical History Screening Postoperative diagnosis: Colon polyps, diverticulosis, hemorrhoids Final Diagnosis A. RECTOSIGMOID POLYP, POLYPECTOMY: TUBULAR ADENOMA. B. RIGHT COLON, BIOPSY: COLONIC MUCOSA WITH NO SIGNIFICANT PATHOLOGIC CHANGE. NO EVIDENCE OF ACTIVE COLITIS OR MICROSCOPIC COLITIS. C. TRANSVERSE COLON, BIOPSY: COLONIC MUCOSA WITH NO SIGNIFICANT PATHOLOGIC CHANGE. NO EVIDENCE OF ACTIVE COLITIS OR MICROSCOPIC COLITIS. D. DESCENDING COLON, BIOPSY: COLONIC MUCOSA WITH NO SIGNIFICANT PATHOLOGIC CHANGE. NO EVIDENCE OF ACTIVE COLITIS OR MICROSCOPIC COLITIS. Electronically Signed Maye Riggins M.D. Gross Description A. Received in formalin, labeled "rectosigmoid polyp" is a appiah, irregular portion of soft tissue measuring 0.4 cm. in greatest dimension. The specimen is submitted in toto in one cassette. B. Received in formalin, labeled "right colon" are 2 appiah, irregular portions of soft tissue measuring 0.1 and 0.2 cm. in greatest dimension. The specimens are submitted in toto in one cassette. C. Received in formalin, labeled "transverse colon biopsy" are 2 appiah, irregular portions of soft tissue measuring 0.2 and 0.4 cm. in greatest dimension. The specimens are submitted in toto in one cassette. D. Received in formalin, labeled "descending colon biopsy" are 2 appiah, irregular portions of soft tissue measuring 0.2 and 0.3 cm. in greatest dimension. The specimens are submitted in toto in one cassette. /02/03/2020 saudi/02/03/2020
== END 2020-02-03 10:25 | disposition home or self-care (01) ==
LOC: JASU-ENDO 04:54
PROVIDERS: ATTEND Internal Medicine Gastroenterology
PROC: 0DBN8ZX Excision of Sigmoid Colon, Via Natural or Artificial Opening Endoscopic, Diagnostic (ICD-10-PCS; principal; 2020-02-03 09:00)
DX: Z12.11 Encounter for screening for malignant neoplasm of colon (principal); D12.7 Benign neoplasm of rectosigmoid junction; K57.30 Diverticulosis of large intestine without perforation or abscess without bleeding; K64.8 Other hemorrhoids; I10 Essential (primary) hypertension; E11.9 Type 2 diabetes mellitus without complications; E78.5 Hyperlipidemia, unspecified
CPT/HCPCS: 88305-TC

== ENCOUNTER 2020-02-10 05:14 | Day surgery (SDC) | payer OTHER ==
--- OUTSIDE RECORDS SUMMARY | 2020-01-27 17:45 | XMS ---
:1955 Author Organization [facility] Support Name Relationship Address Phone RONO SON [address] [place] [address] ACCOUNTS RECEIVABLE MANAGER Unavailable SP . ., . . SE Unavailable Unavailable Unavailable HAIR EXPECTATIONS Unavailable [address] [place] [address] MANINDER DAUGHTER [address] [place] [address] Re-disclosure Warning The records that you are [...] is protected by Article 27-F of the [facility] Public Health law. If you continue you may haveaccess to information: Regarding HIV / AIDS; Provided by facilities licensed or operated by the [facility] Office of Mental Health; or Provided by the [facility] Office for People With Developmental Disabilities. If such information is present, then the following [facility] mandated warning applies: This information has been [...] law may result in a fine or fpc sentence or both. A general authorization for the release of medical or other information is NOT sufficient authorization for further disclosure. Insurance Providers Payer name Policy type Policy ID Covered Covered alliance party's Policy P cris / Coverage alliance party ID relationship to Paul Inf ormation type paul [facility] [id number] SP [id number] 1000 CARE [facility] MEDICAID [id number] SP [id number] [facility] [id number] SP [id number]
[2020-02-05 11:38] VITALS: BMI 29.7
--- OUTSIDE RECORDS SUMMARY | 2020-02-10 05:18 | XMS ---
:1955 Author Organization [facility] Support Name Relationship Address Phone RIGHT AT HOME Unavailable [address] [facility] [phone] [place] [address] ALYCE FRANCIS SON [address] [phone] [place] [address] CELERY CUTTER Unavailable SP . ., . . SE Unavailable Unavailable Unavailable HAIR EXPECTATIONS Unavailable [address] [phone] [place] [address] MITALI DICKENS DAUGHTER [address] [place] [address] Re-disclosure Warning The records that you are [...] is protected by Article 27-F of the [facility] Public Health law. If you continue you may haveaccess to information: Regarding HIV / AIDS; Provided by facilities licensed or operated by the [facility] Office of Mental Health; or Provided by the [facility] Office for People With Developmental Disabilities. If such information is present, then the following [facility] mandated warning applies: This information has [...] law may result in a fine or alf sentence or both. A general authorization for the release of medical or other information is NOT sufficient authorization for further disclosure. Insurance Providers Payer name Policy type Policy ID Covered Covered constitution party's Policy P cris / Coverage constitution party ID relationship to Paul Inf ormation type palu [place] [id number] SP [id number] HMO [facility] [id number] SP [id number] 1000 CARE [place] [id number] SP [id number] 200 Results ID Date Data Source [id number] 02/05/2020 05:35:00 PM EDT [facility] Name Value Range Interpretation Description Data Sup porting Code Source(s) Document(s ) SARS [facility] coronavirus 2 RNA This lab was ordered by [facility] and reported by [facility]. ID Date Data Source [id number] 01/29/2020 02:25:00 PM EDT [facility] Name Value Range Interpretation Description Data Sup porting Code Source(s) Document(s ) SARS [facility] coronavirus 2 RNA This lab was ordered by [facility] and reported by [facility]. Procedure
[2020-02-10 10:22] VITALS: TEMP 98.4
[2020-02-10 12:19] VITALS: BP 110/49; PULSE 66
--- NOTE | 2020-02-11 12:40 | PATH ---
Surgical Pathology Report Patient Name: FAZAL DICKENS [facility]. Rec. #: [id number] /Age/Gender: 1955 (Age: 64) / F Account: [id number] Location: U-ENDOSCOPY Taken: 02/10/2020 Received: 02/10/2020 Reported: 02/11/2020 Physicians: Dean Bates D.O. Specimen(s) Received A: ANTRUM B: BODY OF STOMACH Clinical History Functional dyspepsia Postoperative diagnosis: Gastritis, duodenitis Final Diagnosis A. STOMACH, ANTRUM, BIOPSY: GASTRIC ANTRAL MUCOSA WITH SEVERE CHRONIC ACTIVE GASTRITIS. IMMUNOHISTOCHEMICAL STAIN FOR H. PYLORI IS POSITIVE (MANY). B. STOMACH, BODY, BIOPSY: GASTRIC BODY MUCOSA WITH MODERATE CHRONIC ACTIVE GASTRITIS. IMMUNOHISTOCHEMICAL STAIN FOR H. PYLORI IS POSITIVE (MANY). Positive and negative controls (internal if applicable) show appropriate results. Electronically Signed Aliya Haro M.D. Gross Description A. Received in formalin, labeled "antrum biopsy" are 3 appiah, irregular portions of soft tissue ranging from 0.2-0.4 cm. in greatest dimension. The specimens are submitted in toto in one cassette. B. Received in formalin, labeled "body of stomach" are 2 appiah, irregular portions of soft tissue averaging 0.3 cm. in greatest dimension. The specimens are submitted in toto in one cassette. DL/02/10/2020 saudi/02/10/2020
== END 2020-02-10 11:10 | disposition home or self-care (01) ==
LOC: JASU-ENDO 05:14
PROVIDERS: ATTEND Internal Medicine Gastroenterology
PROC: 0DB68ZX Excision of Stomach, Via Natural or Artificial Opening Endoscopic, Diagnostic (ICD-10-PCS; principal; 2020-02-10 10:00)
DX: K29.50 Unspecified chronic gastritis without bleeding (principal); K29.80 Duodenitis without bleeding; B96.81 Helicobacter pylori [H. pylori] as the cause of diseases classified elsewhere; I10 Essential (primary) hypertension; E11.9 Type 2 diabetes mellitus without complications; Z79.84 Long term (current) use of oral hypoglycemic drugs
CPT/HCPCS: 82962; 88305-TC; 88342-TC

== ENCOUNTER 2023-04-06 12:44 | Emergency (ER) | payer OTHER ==
[2023-04-06 12:59] VITALS: BP 130/64; PULSE 84; RESP 18; TEMP 99.4; BMI 29.7
[2023-04-06] MEDS ORDERED: SODIUM CHLORIDE 0.9% 500 ML INFUS.BAG IV ONE (13:27)
[2023-04-06] MEDS ORDERED: ACETAMINOPHEN 500 MG TABLET (FP) PO ONE (14:51)
[2023-04-06] MEDS ORDERED: ACETAMINOPHEN 325 MG TABLET (FP) ONE (14:55)
[2023-04-06 14:56] LABS: POTASSIUM 4.3 mmol/L (3.5-5.1)
[2023-04-06 14:58] LABS: ALBUMIN 3.3 g/dl (3.4-5.0); BLOOD UREA NITROGEN 8.4 mg/dL (7-18); CALCIUM 8.5 mg/dL (8.5-10.1)
[2023-04-06 15:01] LABS: CREATININE 0.8 mg/dL (0.55-1.3)
[2023-04-06 15:03] LABS: BILIRUBIN,TOTAL 0.6 mg/dL (0.2-1); TOT PROT 7.4 g/dl (6.4-8.2)
== END 2023-04-06 16:17 | disposition home or self-care (01) ==
LOC: JER 12:44
DX: R50.9 Fever, unspecified (principal); R06.02 Shortness of breath; R05.9 Cough, unspecified; R42 Dizziness and giddiness; R53.81 Other malaise; R07.89 Other chest pain; M54.9 Dorsalgia, unspecified; U07.1 COVID-19
CPT/HCPCS: 0241U-QW; 36415; 71045-TC-FY; 80053; 84484; 93005; 93010; 99285-25